=== PATIENT | male | born 1965 | race Caucasian/White ===

== ENCOUNTER 2021-03-20 16:19 | Emergency (ER) | payer MEDICAID, SELFPAY ==
[2021-03-20 16:19] VITALS: BP 154/71; PULSE 91; RESP 18; TEMP 36.2; O2SAT 96; BMI 26.6
[2021-03-20 16:21] VITALS: BP 154/71; PULSE 91; RESP 18; TEMP 36.2; O2SAT 96
--- NOTE | 2021-03-20 16:38 | EKG12_ITS ---
Test Reason : GEN ILLNESS Blood Pressure : / mmHG Vent. Rate : 072 BPM Atrial Rate : 072 BPM P-R Int : 140 ms QRS Dur : 094 ms QT Int : 398 ms P-R-T Axes : 071 065 059 degrees QTc Int : 435 ms Normal sinus rhythm with sinus arrhythmia Normal ECG Confirmed by BRIDGET PENN, CHRISTIE ([id number]), online content editor MARK BEASLEY ([id number]) on 03/21/2021 10:10:03 AM Referred By: ALMA ROSA Confirmed By:CHRISTIE GILL MD
--- NOTE | 2021-03-20 16:38 | CT_ITS ---
STUDY: CT BRAIN WITHOUT CONTRAST REASON FOR EXAM: Male, 55 years old. dizziness RADIATION DOSAGE (If Supplied By Facility): CTDIvol = ( 44.99 ) mGy, DLP = ( 846.73 ) mGycm TECHNIQUE: Transaxial CT imaging of the brain was performed without administration of intravenous contrast material. Individualized dose optimization techniques were used for this CT. COMPARISON: No relevant priors. FINDINGS: Normal soft tissue structures. Normal calvarium. Normal size ventricles and extra-axial spaces for the patient''s age. Normal white matter tracts of the cerebral hemispheres. Normal basal ganglia and thalami. Normal brainstem. Normal cerebellum. There is no intracranial hemorrhage. There are no findings of an acute ischemic infarction. Normal visualized paranasal sinuses. CT/Brain/Head without Contrast IMPRESSION: Normal unenhanced CT scan of the brain. Electronically Signed: Tucker Jackson MD at 17:41 EST , Service support ,
--- NOTE | 2021-03-20 16:39 | EDS_ITS ---
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 Patient complains of nausea and vomiting associated with spinning sensation. Patient apparently per significant other has been complaining about dizzy spells over the last 2 weeks. Patient denies any falls or head injuries. He does complain of some chills and some pain in his low back. He denies urinary symptoms. He has had a cough however he is a smoker and does not think it is that unusual. Patient also had a runny nose. He denies any COVID exposures. He has not had the COVID-vaccine. [facility] Medical History (Updated 03/20/21 @ 18:[address] Pam Guzman, ) Hyperlipemia Home Medications meclizine 25 mg PO TID PRN #20 tab 03/20/21 [Rx Last Taken Unknown] ondansetron 4 mg PO Q8H PRN PRN #10 tab 03/20/21 [Rx Last Taken Unknown] Allergy/AdvReac Type Severity Reaction Status Date / Time No Known Allergies Allergy Verified 03/20/21 16:21 Social History Smoking Status: Never smoker ROS ROS ED ROS Narrative Dizziness Constitutional Constitutional ED: Reports systems reviewed and no addt'l complaints, except as documented; Denies body ache(s), change in weight or chills Eyes Eyes: Denies acute decrease in peripheral vision, change in vision, double vision or loss of vision ENT ENT ED: Reports none; Denies ear pain, lip swelling, loss taste/smell, neck pain, otalgia or sore throat Cardiovascular Cardiovascular: Reports none; Denies abdominal pain, chest pain with activity, leg edema, lightheadedness, palpitations, rapid heart rate or syncope Respiratory/Chest Respiratory/Chest: Reports none and cough; Denies change in mental status, dry cough, dyspnea, hemoptysis, shortness of breath at rest or shortness of breath with exertion Gastrointestinal Gastrointestinal: Reports none, nausea and vomiting; Denies abdominal pain, change in stool character, diarrhea, hematemesis, hematochezia, melena or rectal bleeding Genitourinary Genitourinary ED: Reports none; Denies abdominal discomfort, anuria, dysuria, genital pain or polyuria Musculoskeletal Musculoskeletal: Reports none and back pain; Denies arthralgias, difficulty walking, extremity pain, muscle weakness or myalgias Integumentary Reports none; Denies abscess or rash Neurologic Neurologic: Reports none; Denies abnormal gait, confusion, focal weakness, frequent falls, headache(s), loss of vision, numbness, paresthesias, radicular pain, vertigo or weakness Psychiatric Psychiatric: Reports systems reviewed and no addt'l complaints, except as documented and none; Denies behavioral changes, confusion, difficulty concentrating, hallucinations, suicidal ideation, tactile hallucinations or visual hallucinations Endocrine Endocrinology: Denies none, cold intolerance, excessive sweating, fatigue or heat intolerance Hematologic/Lymphatic Hematologic/Lymphatic: Reports none; Denies anemia, easy bleeding or easy bruising Allergic/Immunologic Allergic/Immunologic ED: Denies as per HPI, none, lip swelling, mouth swelling, throat swelling, tongue swelling or hives EXAM Physical Exam Const Vital Signs: 03/20/21 16:19 03/20/21 16:21 03/20/21 17:13 Temperature 97.1 F L 97.1 F L Temperature Source Temporal Temporal Pulse Rate 91 91 Pulse Rate [Lying] Pulse Rate [Sitting] Pulse Rate [Standing] Respiratory Rate 18 18 Respiratory Effort Normal Non-Labored Respiratory Pattern Normal Blood Pressure 154/71 H 154/71 H Blood Pressure [Lying] Blood Pressure [Sitting] Blood Pressure [Standing] Blood Pressure Mean 98 98 Blood Pressure Mean [Lying] Blood Pressure Mean [Sitting] Blood Pressure Mean [Standing] Pulse Ox 96 96 Oxygen Delivery Method Room Air Room Air 03/20/21 17:41 Temperature Temperature Source Pulse Rate Pulse Rate [Lying] 87 Pulse Rate [Sitting] 79 Pulse Rate [Standing] 83 Respiratory Rate Respiratory Effort Respiratory Pattern Blood Pressure Blood Pressure [Lying] 130/75 H Blood Pressure [Sitting] 120/79 Blood Pressure [Standing] 149/99 H Blood Pressure Mean Blood Pressure Mean [Lying] 93 Blood Pressure Mean [Sitting] 92 Blood Pressure Mean [Standing] 115 Pulse Ox Oxygen Delivery Method Positive well nourished and well developed General Appearance ED: well developed and NAD HEENT Reports TM's clear and moist mucous membranes normocephalic and atraumatic; Negative for trauma or tenderness Tympanic Membrane ED: Yes TM's clear Eyes PERRL and EOMs intact bilaterally General Eye ED: Negative for pale conjunctiva or scleral icterus Neck no lymphadenopathy, supple and no JVD General: Negative for tenderness Chest Wall inspection of chest normal and palpation of chest normal Chest: Negative for tenderness Resp normal respiratory effort and clear to auscultation bilaterally Effort and Inspection: Negative for respiratory distress or pain with movement Auscultation: Negative for rhonchi, wheezes or diminished lung sounds Cardio regular rate, regular rhythm, S1 normal heart sound, S2 normal heart sound and no murmurs Peripheral Pulses: pulses 2+ throughout GI normal to inspection, nondistended, normoactive bowel sounds, soft to palpation, non-tender, non-distended and no masses Back/Spine no CVA tenderness and no thoracic nor lumbar tenderness Extremity normal to inspection General Extremety ED: Negative for edema General Extremity: Negative for edema Neuro oriented x3, CN's II-XII intact bilaterally, no sensory deficits noted and gait normal Neuro Narrative: I did perform Hallpike maneuver with head turned to the left however he was unable to tolerate laying flat as he became very nauseated and felt like he was going to vomit. I did not appreciate any obvious nystagmus. He could not tolerate the exam very well. Sensorium / Orientation: awake, alert, oriented to person, oriented to place and oriented to time Motor Exam: strength 5/5 throughout and strength abnormal Psych mental status grossly normal Skin no rashes or lesions noted and no wounds MDM MDM MDM Narrative Medical decision making narrative: IV line established on arrival. Patient was given Zofran 4 mg IV as well as Antivert 25 mg p.o. Patient did have significant improvement in symptoms and he states that he is now able to get up and down and is able to function. Patient's lab work-up and CT brain were unremarkable. At this point I suspect likely benign positional vertigo as his symptom etiology. Patient will be given a prescription for Zofran and Antivert and referral to ENT for follow-up. Lab Data Attestation: I reviewed the patient's lab results. Labs: Laboratory Results - last 24 hr 03/20/21 03/20/21 17:09 17:09 WBC 9.6 RBC 5.43 Hgb 16.5 Hct 49.8 MCV 91.7 MCH 30.4 MCHC 33.1 RDW Std Deviation 43.8 RDW Coeff of [place] 13.1 Plt Count 279 MPV 8.6 Immature Gran % (Auto) 0.400 Neut % (Auto) 85.2 H Lymph % (Auto) 10.8 L [place] % (Auto) 3.0 Eos % (Auto) 0.3 Baso % (Auto) 0.3 Absolute Neuts (auto) 8.2 H Absolute Lymphs (auto) 1.03 Nucleated RBC % 0 Sodium 141 Potassium 4.2 Chloride 107 Carbon Dioxide 25.0 Anion Gap 9 BUN 20 H Creatinine 1.17 Estim Creat Clear Calc 67.39 Est GFR (MDRD) Af Amer 82 Est GFR (MDRD) Non-Af 68 BUN/Creatinine Ratio 17.1 Glucose 114 H Calcium 9.5 Troponin I High Sens 4 Radiography Diagnostic Testing: Clinical Impression(s) from Imaging Studies Brain CT 03/20/21 16:38 IMPRESSION: Normal unenhanced CT scan of the brain. Electronically Signed: Tucker Jackson MD at 17:41 EST , Service support , EKG Initial EKG: Attestation: I personally reviewed and interpreted this EKG as follows: Comments: Sinus rhythm with a rate of 72 bpm with no acute ST segment changes Discharge Plan Triage Chief Complaint: General Illness ED Provider: Pam Guzman Dx/Rx/DC Orders Clinical Impression: Benign paroxysmal positional vertigo Instructions: BPPV Prescriptions: New ondansetron [ondansetron] 4 MG tablet 4 mg PO Q8H PRN PRN (Reason: Nausea) Qty: 10 RF: 0 meclizine 25 mg tablet 25 mg PO TID PRN (Reason: dizziness) Qty: 20 RF: 0 Primary Care Provider: Parrish Giordano Referrals: Pablo Lamb MD [STAFF PHYSICIAN] - 3-5 Days Parrish Giordano MD [Primary Care Provider] - Disposition Disposition: Home, Self Care
[2021-03-20] MEDS: 0.9% Normal Saline 1,000 ML 150 ML IV (17:08)
[2021-03-20] MEDS: Ondansetron 4 MG/2 ML Vial IV (17:08)
[2021-03-20] MEDS: Meclizine HCl 25 MG Tablet PO (17:08)
[2021-03-20 17:26] LABS: Absolute Lymphocyte Count 1.03 X10^3/uL (0.83-4.51); Absolute Neutrophil Count 8.2 X10^3/uL (2.0-7.7); Basophil# 0.03 X10^3/uL; Basophil% 0.3 % (0-1); Eosinophil# 0.03 X10^3/uL; Eosinophils% 0.3 % (0-5); Hematocrit 49.8 % (40-54); Hemoglobin 16.5 g/dL (13.0-16.5); Lymphocyte # 1.03 X10^3/ul (0.83-4.51); Lymphocyte % 10.8 % (19-41); Mean Corp Hgb Conc 33.1 g/dL (32-36); Mean Corpuscular Hgb 30.4 pg (27.0-32.0); Mean Corpuscular Volume 91.7 fL (80-94); Mean Platelet Vol. 8.6 fl (6.2-12.0); Monocyte# 0.29 X10^3/uL; NRBC Flagged by Analyzer 0 % (0-5); Neutrophil # 8.16 X10^3/uL (2.7-7.7); Neutrophil % 85.2 % (47-70); Platelet Count 279 K/mm3 (150-450); RBC Distribution Width CV 13.1 % (11.6-14.6); RBC Distribution Width SD 43.8 fl (35.1-43.9); Red Blood Count 5.43 M/mm3 (4.6-6.2); White Blood Count 9.6 K/mm3 (4.4-11.0)
[2021-03-20 17:41] VITALS: BP 120/79; BP 130/75; BP 149/99; PULSE 79; PULSE 83; PULSE 87
[2021-03-20 17:45] LABS: Anion Gap 9 (5-15); BUN 20 mg/dL (7-18); BUN/Creat Ratio 17.1 RATIO (10-20); Calcium,Total 9.5 mg/dL (8.5-10.1); Chloride 107 mmol/L (98-107); Creatinine, Serum 1.17 mg/dL (0.70-1.30); EST Glomerular Filtration Rate 68 mL/min (>60); Est Glom Filt Rate - Afr Amer 82 mL/min (>60); Estimated Creatinine Clearance 67.39 ml/min; Glucose 114 mg/dL (74-106); Potassium 4.2 mmol/L (3.5-5.1); Sodium Level 141 mmol/L (136-145); Troponin-I HS 4 pg/mL (3.0-78.0)
== END 2021-03-20 19:06 | disposition home or self-care (01) ==
PROVIDERS: Emergency Provider Emergency Medicine; PCP Internal Medicine; Visit Provider Emergency Medicine
DX: H81.10 Benign paroxysmal vertigo, unspecified ear (principal); F17.200 Nicotine dependence, unspecified, uncomplicated
CPT/HCPCS: 70450; 80048; 84484; 85025; 87426; 93005; 96361; 96374; 99285; J7030; A4216; J2405